=== PATIENT | male | born 1985 ===

== ENCOUNTER 2017-06-10 20:17 | Observation (INO) | payer SELFPAY ==
--- NOTE | 2017-06-10 20:56 | ED PDOC ---
HPI: General Adult Time Seen by Provider: 06/10/17 20:24 Chief Complaint (Nursing): Psychiatric Evaluation History Per: Patient, EMS Additional Complaint(s): Pt. was brought in by EMS as he was found wandering around [place]. Pt. 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 Pt. states he takes his insulin daily and did take it today. Further states that he is visiting from [place]. Pt. states that he is attempting to find his and 8 kids but as per EMS pt. informed them that he is trying to find a to . Offers no complaints at this time. Denies SI/ HI, hallucinations, SOB. Past Medical History Reviewed: Historical Data, Nursing Documentation, Vital Signs Vital Signs: Last Vital Signs Temp 98.4 F 06/10/17 20:21 Pulse 91 H 06/10/17 20:21 Resp 17 06/10/17 20:21 BP 132/81 06/10/17 20:21 Pulse Ox 99 06/11/17 03:58 - Family History Family History: States: No Known Family Hx - Allergies Allergies/Adverse Reactions: Allergies Allergy/AdvReac Type Severity Reaction Status Date / Time No Known Allergies Allergy Verified 06/10/17 20:26 Review of Systems ROS Statement: Except As Marked, All Systems Reviewed And Found Negative Physical Exam - Reviewed Nursing Documentation Reviewed: Yes Vital Signs Reviewed: Yes - Physical Exam Appears: Positive for: Well, Non-toxic, No Acute Distress Head Exam: Positive for: ATRAUMATIC, NORMAL INSPECTION, NORMOCEPHALIC Skin: Positive for: Normal Color, Warm. Negative for: Rash Eye Exam: Positive for: EOMI, Normal appearance, PERRL ENT: Positive for: Normal ENT Inspection Neck: Positive for: Normal, Painless ROM Cardiovascular/Chest: Positive for: Regular Rate, Rhythm Respiratory: Positive for: CNT, Normal Breath Sounds Gastrointestinal/Abdominal: Positive for: Normal Exam, Bowel Sounds, Soft. Negative for: Tenderness Back: Positive for: Normal Inspection Extremity: Positive for: Normal ROM Neurologic/Psych: Positive for: Alert, Oriented - Laboratory Results Result Diagrams: 06/10/17 22:41 06/10/17 22:41 Urine dip results: Positive for: Ketones (trace), Glucose (500). Negative for: Leukocyte Esterase, Blood, Nitrate, Bilirubin, Protein - ECG O2 Sat by Pulse Oximetry: 99 - Progress ED Course And Treament: Labs ordered. Crisis Eval ordered. ED OBSERVATION Discharge: Yes Date of observation admission: 06/10/17 Time of observation admission: 20:57 - Observation admission statement Patient is being placed in observation because:: Hyperglycemia, crisis eval - Progress Note Progress Note: 06/11/17 22:17 Pt. attempted to run out of ED. Restraint ordered. Ativan 2mg IM, haldol 5mg IM given. 06/11/17 23:07 Glucose: 367 Insulin 6 units IVP, IV NS bolus x 1 given. 06/11/17 00:49 FSBS: 402 Insulin 8 units IV ordered. Pending urine. Pt.'s mother is in ED who states that pt. left their home in [place] today. As per mother pt. was attempting to find a who friend recently moved to [place]. Hx and plan of care reviewed with mother who agrees. 06/11/17 01:12 FSBS 314 prior to being given Insulin 8 units. Insulin 8 units canceled. Additional IV NS bolus given. Labs show no anion gap. 06/11/17 03:51 Pt. evaluated by Magda, steam trap worker, who discussed case with Dr. Ennis and cleared pt. for discharge. Case and labs d/w Dr. Mckeon who agrees with care. Pt. dc'd under his parents care. Disposition - Clinical Impression Clinical Impression: Hyperglycemia, Delusional disorder - Patient ED Disposition Is Patient to be Admitted: No - Disposition Disposition: Routine/Home Disposition Time: 03:58 Condition: IMPROVED
[2017-06-10 22:50] LABS: BASO % 0.3 % (0.0-2.0); EOS % 0.2 % (0.0-4.0); HEMOGLOBIN 13.8 g/dL (12.0-18.0); LYMPH # 0.9 K/uL (1.0-4.3); LYMPH % 20.4 % (20.0-40.0); MEAN CELL VOLUME 88.8 fl (80.0-94.0); MEAN CORPUSCULAR HEMOGLOBIN 29.3 pg (27.0-31.0); MEAN PLATELET VOLUME 7.3 fl (7.2-11.7); MONO # 0.4 K/uL (0.0-0.8); MONO % 8.8 % (0.0-10.0); NEUT # 3.1 K/uL (1.8-7.0); NEUT % 70.3 % (50.0-75.0); NRBC % 0.1 % (0.0-0.0); RBC 4.7 Mil/uL (4.40-5.90); RED CELL DISTRIBUTION WIDTH 12.6 % (11.5-14.5); WHITE BLOOD COUNT 4.5 K/uL (4.8-10.8)
[2017-06-10 23:03] LABS: ALB/GLOB RATIO 1.7 (1.0-2.1); ALBUMIN 3.8 g/dL (3.5-5.0); ALT/SGPT 39 U/L (21-72); AST/SGOT 27 U/L (17-59); BLOOD UREA NITROGEN 13 mg/dl (9-20); CALCIUM 8.7 mg/dL (8.4-10.2); GFR AFRICAN-AMERICAN > 60; GFR NON-AFRICAN AMERICAN > 60
[2017-06-10] MEDS ORDERED: Insulin Regular 100 units/ml IVP STA (23:07)
[2017-06-10] MEDS ORDERED: Sodium Chloride 0.9% 1,000 ML IV STA (23:07)
[2017-06-10] MEDS ORDERED: Insulin Regular 100 units/ml ONE (23:47)
[2017-06-11] MEDS ORDERED: Insulin Regular 100 units/ml IVP STA (00:47)
[2017-06-11 01:05] LABS: BARBITURATES, UR NEGATIVE (NEGATIVE); BENZODIAZEPINES, UR NEGATIVE (NEGATIVE); OPIATES, UR NEGATIVE (NEGATIVE); PHENCYCLIDINE, UR NEGATIVE (NEGATIVE)
[2017-06-11 03:51] LABS: URINE BILIRUBIN NEGATIVE (NEGATIVE); URINE BLOOD NEGATIVE (NEGATIVE); URINE CLARITY CLEAR (Clear); URINE COLOR YELLOW (YELLOW); URINE GLUCOSE (UA) >=500 mg/dL (Normal); URINE LEUKOCYTE ESTERASE NEG Leu/uL (Negative); URINE NITRATE NEGATIVE (NEGATIVE); URINE PROTEIN NEGATIVE (NEGATIVE); URINE UROBILINOGEN 0.2-1.0 mg/dL (0.2-1.0)
[2017-06-11 12:09] VITALS: BP 132/81; PULSE 91; RESP 17; TEMP 98.4; O2SAT 99
== END 2017-06-11 04:08 | disposition home or self-care (01) ==
LOC: H.ER 20:17 → H.EROBSV 20:51
PROVIDERS: ADMIT Emergency Medicine; ATTEND Emergency Medicine
DX: E11.65 Type 2 diabetes mellitus with hyperglycemia (principal); F22 Delusional disorders; Z79.4 Long term (current) use of insulin; Z91.83 Wandering in diseases classified elsewhere
CPT/HCPCS: 36415; 80053; 81003; 82948; 85025; 96372; 96374; 99283; G0378; G0480; J1630; J2060; J7040

== ENCOUNTER 2018-01-10 20:37 | Emergency (ER) | payer SELFPAY ==
[2018-01-10 20:46] VITALS: BP 124/71; PULSE 99; RESP 16; TEMP 96.9; O2SAT 97
--- NOTE | 2018-01-10 21:39 | ED PDOC ---
HPI: Psych/Substance Abuse Time Seen by Provider: 01/10/18 20:50 Chief Complaint (Nursing): Medical Clearance Chief Complaint (Provider): Crisis evaluation History Per: Patient Additional Complaint(s): 32yo male, with history of diabetes, mental retardation, schizophrenia/ bipolar reported to have wandered to this area from [place], where he is a resident. Patient known to have done this in the past. He has no medical complaints. Family contacted by local police and are en route to take patient home. Past Medical History Reviewed: Historical Data, Nursing Documentation, Vital Signs Vital Signs: Last Vital Signs Temp 96.9 F L 01/10/18 20:42 Pulse 99 H 01/10/18 20:42 Resp 16 01/10/18 20:42 BP 124/71 01/10/18 20:42 Pulse Ox 97 01/10/18 20:42 - Medical History PMH: Bipolar Disorder, Schizophrenia Denies: Diabetes, Hepatitis, HIV, HTN, Seizures, Sexually Transmitted Disease - Surgical History Surgical History: No Surg Hx - Family History Family History: States: No Known Family Hx - Allergies Allergies/Adverse Reactions: Allergies Allergy/AdvReac Type Severity Reaction Status Date / Time No Known Allergies Allergy Verified 06/10/17 20:26 Review of Systems ROS Statement: Except As Marked, All Systems Reviewed And Found Negative ( diya has no medical complaints) Physical Exam - Reviewed Nursing Documentation Reviewed: Yes Vital Signs Reviewed: Yes - Physical Exam Appears: Positive for: Non-toxic, No Acute Distress Head Exam: Positive for: ATRAUMATIC, NORMAL INSPECTION, NORMOCEPHALIC Skin: Positive for: Normal Color Eye Exam: Positive for: Normal appearance Neck: Positive for: Supple Cardiovascular/Chest: Positive for: Regular Rate, Rhythm Respiratory: Positive for: Normal Breath Sounds Extremity: Positive for: Normal ROM Neurologic/Psych: Positive for: Alert, Oriented - ECG O2 Sat by Pulse Oximetry: 97 (RA) Pulse Ox Interpretation: Normal Medical Decision Making Medical Decision Making: Impression: 32yo male, found wandering around, known to have mental retardation Plan: -- Patient's parents contacted and will come to ER to pick him up. Time: 2227 Patient's parents are at bedside and willing to take patient home. Parents informed of elevated blood sugar level and is due for insulin, parents report they will administer the dose once home. Scribe Attestation: Documented by Sandra Cheryl acting as a scribe for Tristan Mckeon MD. Provider Attestation: All medical record entries made by the Scribe were at my direction and personally dictated by me. I have reviewed the chart and agree that the record accurately reflects my personal performance of the history, physical exam, medical decision making, and the department course for this patient. I have also personally directed, reviewed, and agree with the discharge instructions and disposition. Disposition - Clinical Impression Clinical Impression: Hyperglycemia, Mental retardation - Disposition Disposition: Routine/Home Disposition Time: 22:00 Condition: STABLE Instructions: Diabetic Hyperglycemia (ED) Forms: [employer] (Vietnamese)
== END 2018-01-10 22:40 | disposition home or self-care (01) ==
LOC: H.ER 20:37
DX: E11.65 Type 2 diabetes mellitus with hyperglycemia (principal); F79 Unspecified intellectual disabilities; F20.9 Schizophrenia, unspecified; F31.9 Bipolar disorder, unspecified